=== PATIENT | female | born 1940 | race African-American/Black ===

== ENCOUNTER → 2022-03-19 14:46 | Outpatient (REF) | payer MEDICARE, SELFPAY ==
[2022-03-19 17:53] LABS: Basophils % 0.6 % (0.1-2.0); Eosinophils # 0.1 K/mm3 (0.0-0.4); Eosinophils % 1.8 % (0.1-12.0); Lymphocytes # 1.1 K/mm3 (0.7-4.5); Lymphocytes % 16.2 % (10-50); Mean Corpuscular HGB Conc 31.5 g/dL (31.8-35.4); Mean Corpuscular Hemoglobin 27.2 pg (27.0-31.2); Mean Corpuscular Volume 86.2 fl (81-99); Mean Platelet Volume 9.4 fl (7.4-10.4); Monocytes # 0.5 K/mm3 (0.1-1.0); Monocytes % 6.9 % (1.7-9.3); Neutrophils # 4.9 K/mm3 (1.8-7.8); Neutrophils % 74.6 % (37.0-80.0); Platelet Count 215 K/mm3 (142-424); Red Blood Count 3.32 M/mm3 (4.20-5.40); Red Cell Distribution Width 17.2 % (11.5-17.5); White Blood Count 6.6 K/mm3 (4.8-10.8)
[2022-03-19 18:04] LABS: Hematocrit 28.6 % (37.0-47.0)
[2022-03-19 18:11] LABS: Blood Urea Nitrogen 54 mg/dl (7-17); Calcium 8.3 mg/dl (8.4-10.2); Carbon Dioxide 18 mmol/L (22.0-30.0); Chloride 109 mmol/L (98-107); Estimated Glomerular Filt Rate 9 ml/min (>60); GFR (African American) 11 ML/MIN (>60); Glucose 164 mg/dl (74-100); Sodium 140 mmol/L (136-145)
== END ==
LOC: LAB.DROPOF 14:46
PROVIDERS: Visit Provider Nurse Practitioner Family
DX: R53.83 Other fatigue (principal)
CPT/HCPCS: 80048; 85025

== ENCOUNTER 2022-03-24 19:05 | Inpatient (IN) | payer MEDICARE, MEDICAID, SELFPAY ==
--- NOTE | 2022-03-24 19:00 | CT_ITS ---
PROCEDURE INFORMATION: Exam: CT Head Without Contrast Exam date and time: 03/24/2022 7:13 PM Age: 82 years old Clinical indication: Altered mental status/memory loss; Additional info: AMS TECHNIQUE: Imaging protocol: Computed tomography of the head without contrast. Radiation optimization: All CT scans at this facility use at least one of these dose optimization techniques: automated exposure control; mA and/or kV adjustment per patient size (includes targeted exams where dose is matched to clinical indication); or iterative reconstruction. COMPARISON: No relevant prior studies available. FINDINGS: Brain: Old left cerebellar infarct. Periventricular and subcortical small vessel ischemic changes. Mild atrophy associated. No acute hemorrhage, mass effect, midline shift, or extra-axial fluid collection. Cerebral ventricles: No ventriculomegaly. Paranasal sinuses: Visualized sinuses are unremarkable. No fluid levels. Mastoid air cells: Visualized mastoid air cells are well aerated. Bones/joints: Unremarkable. No acute fracture. Soft tissues: Unremarkable. IMPRESSION: 1. Old left cerebellar infarct. 2. No acute findings.
--- NOTE | 2022-03-24 19:02 | HMH.EDGENADL ---
Discharge Plan Disposition Patient Disposition: Admitted As Inpatient Condition: Fair Clinical Impressions Clinical Impression: Adult failure to thrive Discharge ED Provider: Bel Deutsch [facility] Adult HPI <Annie Tam DO - Last Filed: 03/24/22 20:11> General Chief complaint: Weakness Stated complaint: weakness Time Seen by Provider: 03/24/22 19:16 Mode of Arrival: EMS Source of Information: Relative and EMS Limitations: No Limitations History of Present Illness HPI narrative: 82-year-old female presenting to the emergency department with generalized weakness, altered mental status, failure to thrive. History obtained from EMS: Patient is a new resident to [facility]. She has been there 2 days. Family went to see her today and were concerned she looked dehydrated, not herself. She is usually able to carry on few word sentences. They requested she be evaluated in the emergency department History from family: Daughter and granddaughter state that they went to see her today and were very concerned about her. She is not eating and drinking. She previously was at a different detention, they are concerned that she had a very quick decline while she was there. They had her transferred to [place]. She had COVID prior to the last detention. No other recent illness. Given that she is becoming less responsive and less interested in eating and drinking, detention had discussed hospice care with patient's . was agreeable. However, the rest of the family does not think he knew what they were saying. They do not want her to be comfort care only. Patient will open her eyes, answers yes and no questions inappropriately. Medical record states she has hypertension, diabetes, dementia, chronic kidney disease Related Data Home Medications Medication Instructions Recorded Confirmed amantadine HCl 50 mg/5 mL oral 50 mg PO BID covid 03/24/22 03/25/22 solution amlodipine 10 mg tablet 10 mg PO DAILY Hypertension 03/24/22 03/25/22 carvedilol 25 mg tablet 25 mg PO DAILY hypertenison 03/24/22 03/25/22 clopidogrel 75 mg tablet 75 mg PO DAILY Blood thinner 03/24/22 03/25/22 hydralazine 50 mg tablet 50 mg PO DAILY Hypertension 03/24/22 03/25/22 insulin glargine 100 unit/mL (3 10 unit SQ HS Diabetes 10/26/22 10/27/22 mL) subcutaneous pen (Lantus Solostar U-100 Insulin) insulin lispro 100 unit/mL 1 unit SQ TID Diabetes 03/24/22 03/24/22 subcutaneous cartridge latanoprost 0.005 % eye drops 2 drp Eye-Both HS Glaucoma 03/24/22 03/25/22 melatonin 3 mg capsule 3 mg PO HS PRN Sleep 03/24/22 03/25/22 simvastatin 40 mg tablet 40 mg PO HS High cholesterol 03/24/22 03/25/22 Allergies Allergy/AdvReac Type Severity Reaction Status Date / Time cephalexin Allergy Verified 03/24/22 19:23 ibuprofen Allergy Verified 03/24/22 19:23 Penicillins Allergy Verified 03/24/22 19:23 [facility] <Annie Tam DO - Last Filed: 03/24/22 20:11> [facility] Medical History Anemia CKD (chronic kidney disease) Congestive heart failure COPD (chronic obstructive pulmonary disease) CVA (cerebral vascular accident) Dehydration Dementia Diabetes Hemiplegia affecting left dominant side Hyperlipidemia Hypernatremia Hypertension Pneumonia Tuberculosis Tuberculosis Surgical History Failed CABG (coronary artery bypass graft) History of nephrectomy Family History (Updated 03/25/22 @ 00:02 by Yeni White, RN) Other Anemia COPD (chronic obstructive pulmonary disease) Chronic kidney disease Coronary artery disease Diabetes Hypertension Social History (Updated 03/25/22 @ 00:05 by Yeni White, RN) Smoking Status: Former smoker years smoked: 20 alcohol intake: never current occupational status: retired Travel in the last 8 weeks: None housing: detention <Annie Tam DO - Last Fi
[2022-03-24 19:05] VITALS: BP 130/60; PULSE 71; RESP 16; TEMP 37.2; O2SAT 99; BMI 36.6
--- NOTE | 2022-03-24 19:34 | ECG_ITS ---
APPROVED REPORT Exam: Resting ECG HR:72 bpm ECG Measurements Heart Rate 72 AXES VT 152 P 50 QRSd 90 QRS -19 QT 375 T 117 QTc 399 Conclusion SINUS RHYTHM LEFT VENTRICULAR HYPERTROPHY AND ST-T CHANGE [VOLTAGE CRITERIA PLUS ST/T ABNORMALITY] ABNORMAL ECG UNCONFIRMED REPORT Electronically signed by : Royer Forman MD 03/25/2022 21:07:06
[2022-03-24 19:52] LABS: Influenza A, PCR Not Detected (NotDetected); Influenza B, PCR Not Detected (NotDetected); Microscopic, Urine URINE MICROSCOPIC (MICROSCOPIC)
[2022-03-24 19:57] LABS: VBG Base Excess -4.3 mmol/L (-2.4-2.3); VBG HCO3 21.3 mmol/L (23-30); VBG Oxygen Saturation 79.6 % (50-70); VBG PCO2 39.5 mmol/L (35-51); VBG PH 7.35 mmol/L (7.31-7.41); VBG PO2 46.2 mmol/L (28-40); VBG Total CO2 22.5 mmol/L (23-27)
[2022-03-24 19:59] LABS: Appearance,Urine CLEAR (Clear); Bilirubin,Urine Negative (Negative); Blood, Urine 2+ (Negative); Color,Urine YELLOW (Yellow); Glucose,Urine (UA) 1+ (Negative); Ketones,Urine Negative (Negative); Leukocyte Esterase,Urine Negative (Negative); Nitrate,Urine Negative (Negative); Protein,Urine 3+ (Negative); Specific Gravity, Urine >= 1.030 (1.005-1.030); Urobilinogen,Urine 0.2 EU/dl (0.2)
[2022-03-24 19:59] LABS: Basophils # 0.1 K/mm3 (0-0.2); Basophils % 0.6 % (0.1-2.0); Eosinophils # 0.2 K/mm3 (0.0-0.4); Eosinophils % 2.1 % (0.1-12.0); Hemoglobin 8.7 g/dL (12.2-16.2); Lymphocytes # 1.4 K/mm3 (0.7-4.5); Lymphocytes % 16.2 % (10-50); Mean Corpuscular HGB Conc 31.1 g/dL (31.8-35.4); Mean Corpuscular Hemoglobin 27.1 pg (27.0-31.2); Mean Platelet Volume 8.5 fl (7.4-10.4); Monocytes # 0.5 K/mm3 (0.1-1.0); Monocytes % 5.3 % (1.7-9.3); Neutrophils # 6.6 K/mm3 (1.8-7.8); Neutrophils % 75.9 % (37.0-80.0); Platelet Count 249 K/mm3 (142-424); Red Blood Count 3.22 M/mm3 (4.20-5.40); Red Cell Distribution Width 16.8 % (11.5-17.5); White Blood Count 8.7 K/mm3 (4.8-10.8)
[2022-03-24 20:01] LABS: Anion Gap 12.4 mEq/L (5-15); Bilirubin,Total 0.3 mg/dl (0.2-1.3); Blood Urea Nitrogen 65 mg/dl (7-17); Calcium 8.4 mg/dl (8.4-10.2); Carbon Dioxide 25 mmol/L (22.0-30.0); Chloride 117 mmol/L (98-107); Creatinine Clearance Estimated 13 mL/min (50-200); Estimated Glomerular Filt Rate 9 ml/min (>60); GFR (African American) 11 ML/MIN (>60); Glucose 148 mg/dl (74-100); Potassium 4.4 mmoL/L (3.5-5.1)
[2022-03-24 20:02] LABS: Alanine Aminotransferase 149 U/L (12-78); Albumin Level 2.9 g/dl (3.5-5.0); Albumin/Globulin Ratio 0.8 (1.1-1.8); Alkaline Phosphatase 108 U/L (38-126); Aspartate Amino Transferase 154 U/L (14-36); Globulin 3.5 g/dL (1.3-3.2); Lipase 47 U/L (23-300); Total Protein,Serum 6.4 g/dl (6.3-8.2)
[2022-03-24 20:03] LABS: Ammonia < 9 umol/L (9-30); Lactic Acid 1.1 mmol/L (0.7-2.1)
[2022-03-24 20:11] LABS: Sodium 150 mmol/L (136-145)
[2022-03-24 20:37] LABS: Bacteria,Urine 1+ /lpf
[2022-03-24 20:38] LABS: Amorphous Sediment,Urine Trace /lpf; Yeast,Urine 1+ /lpf
--- NOTE | 2022-03-24 20:45 | PC.NURSE ---
Bed assignment obtained, notified admissions
[2022-03-24 20:56] VITALS: BMI 34.9
[2022-03-24 20:58] LABS: Coronavirus 19, PCR Detected (NotDetected)
--- NOTE | 2022-03-24 22:10 | EXP.HP ---
History of Present Illness *Admission Date: 03/24/22 *Reason for visit:: Failure to Thrive *History of present illness: Ms. Chantal Izquierdo is a 82-year-old female who is a resident of a local long-term care facility. Per Family report the patient has a history of CHF, type unknown, history of recent COVID 19 infection, Dementia, Diabetes Mellitus and Hyperlipidemia. She presented to [facility] by EMS from the local [place] due to family concern for decline. The patient was seen on admission in the ER, the patient's daughter and grand-daughter were at bedside. They report that the patient has been at [facility] since 03/16. She was placed at the [facility] for long-term care due to the patient's being no longer able to care for her in the home. They report that the patient has not walked in the last six weeks following a hospitalization in the [facility]. They report that they went to see the patient today and she was much worse than prior visit so they requested that she be sent to the ER for evaluation. Also the patient was being followed by Hospice at the facility, they are currently not wanting Hospice and want further work-up and re-evaluation they report that the patient's was not aware of the decision he was making and reports he will be at this facility tomorrow morning to discuss further. In the ER, CBC was unremarkable. CMP showed a Creatinine of 4.70 with a GFR of 9. Sodium was elevated at 150. CT of the head showed an old left cerebellar infarct and no acute findings. The family denies knowing if the patient has CKD. They do report a history of a Nephrectomy at a young age for the patient but reports that they are unsure why the patient received the Nephrectomy. The patient will be admitted with initial impression: Failure to Thrive, HOLLIE on possible CKD. Urine studies and US of the kidneys will be ordered. The patient will be given fluids for Hypernatremia. Case Management will be consulted for possible placement issues and Speech will be consulted. The plan of care was discussed on admission with the patient's family at bedside. The family verbalized understanding and agreement with the plan of care. [facility] Medical History (Updated 03/24/22 @ 22:23 by Jorge Luis Villanueva DNP) CKD (chronic kidney disease) Congestive heart failure Dementia Hyperlipidemia Tuberculosis Tuberculosis Surgical History (Updated 03/24/22 @ 22:20 by Jorge Luis Villanueva DNP) Failed CABG (coronary artery bypass graft) History of nephrectomy Family History (Updated 03/24/22 @ 22:20 by Jorge Luis Villanueva DNP) Other Coronary artery disease Social History (Updated 03/24/22 @ 22:21 by Jorge Luis Villanueva DNP) Smoking Status: Former smoker years smoked: 20 alcohol intake: never current occupational status: retired Travel in the last 8 weeks: None housing: prison Review of Systems Review of Systems Review of systems:: unable to obtain Meds Home Medications and Allergies Home Medications Medication Instructions Recorded Confirmed Type amantadine HCl 50 mg/5 mL oral 50 mg PO BID covid 03/24/22 03/24/22 History solution amlodipine 10 mg tablet 10 mg PO DAILY Hypertension 03/24/22 03/24/22 History carvedilol 25 mg tablet 25 mg PO DAILY hypertenison 03/24/22 03/24/22 History clopidogrel 75 mg tablet 75 mg PO DAILY Blood thinner 03/24/22 03/24/22 History hydralazine 50 mg tablet 50 mg PO DAILY Hypertension 03/24/22 03/24/22 History insulin glargine 100 unit/mL (3 10 unit SQ HS Diabetes 03/24/22 03/24/22 History mL) subcutaneous pen (Lantus Solostar U-100 Insulin) insulin lispro 100 unit/mL 1 unit SQ TID Diabetes 03/24/22 03/24/22 History subcutaneous cartridge latanoprost 0.005 % eye drops 2 drp Eye-Both HS Glaucoma 03/24/22 03/24/22 History melatonin 3 mg capsule 3 mg PO HS PRN Sleep 03/24/22 03/24/22 History simvastatin 40 mg tablet 40 mg PO HS High cholesterol
[2022-03-24 22:16] LABS: NT Pro Brain Natriuretic Pep. 1840 pg/mL (0-450)
[2022-03-24 22:18] LABS: Creatinine,Urine Random 130 mg/dL (Not Estab.)
[2022-03-24 22:38] VITALS: BP 145/74; PULSE 70; RESP 16; TEMP 37.1; O2SAT 99
--- NOTE | 2022-03-24 22:38 | XR_ITS ---
PROCEDURE INFORMATION: Exam: XR Abdomen Exam date and time: 03/25/2022 12:36 AM Age: 82 years old Clinical indication: Other: Not eating; Additional info: Not eating, non-mobile TECHNIQUE: Imaging protocol: Radiologic exam of the abdomen. Views: Frontal supine view of the abdomen. 1 View. COMPARISON: No relevant prior studies available. FINDINGS: Gastrointestinal tract: Several mildly/borderline distended loops of small bowel, nonspecific, partial/early small bowel obstruction is possible. Vasculature: Aorta bi-iliac stent. Bones/joints: Median sternotomy. IMPRESSION: Several mildly/borderline distended loops of small bowel, nonspecific, partial/early small bowel obstruction is possible.
--- NOTE | 2022-03-24 22:50 | PC.NURSE ---
PT ARRIVED BY STRETCHER AT THIS TIME
[2022-03-24 23:26] VITALS: BP 113/68; PULSE 121; RESP 16; TEMP 36.9; O2SAT 97
[2022-03-25 04:00] VITALS: BP 142/68; PULSE 75; RESP 16; TEMP 37.1; O2SAT 98
[2022-03-25 04:05] VITALS: BMI 34.9
--- NOTE | 2022-03-25 05:57 | US_ITS ---
FINAL REPORT TECHNIQUE: Ultrasound images of the kidneys were obtained. CLINICAL HISTORY: elevated creatinine FINDINGS: US RETROPERITONEAL The right kidney measures 8.4 cm in length. There is increased echogenicity. There is no hydronephrosis. The left kidney measures 8.8 cm in length. There is increased echogenicity. There is no hydronephrosis. There is a 2.8 cm left renal cyst. Spleen is unremarkable. IMPRESSION: Increased echogenicity of both kidneys worrisome for medical renal disease. Left renal cyst, 2.8 cm. Reviewed, Interpreted and Dictated by Dejuan Rosales III, MD Transcribed by Anastasia Mullins Authenticated and [facility]
--- NOTE | 2022-03-25 06:16 | PC.NURSE ---
Pt is alert to self. Can state her name, age and Bday. Has been resistive to turning and repositioning. VSS. Lungs are diminished t/o. Pt remains on RA. She has been afebrile. F/C draining to bedside with cloudy, yellow urine. 300 ml output. No BM this shift. Pt noted to have 2+ pitting edema to BLE. Pt tends to draw legs up and to the left. Medications administered per mar. Call light at bedside. Safety measures in place.
[2022-03-25 07:22] LABS: Basophils # 0.1 K/mm3 (0-0.2); Basophils % 0.5 % (0.1-2.0); Eosinophils # 0.2 K/mm3 (0.0-0.4); Eosinophils % 1.8 % (0.1-12.0); Hematocrit 27.6 % (37.0-47.0); Hemoglobin 8.4 g/dL (12.2-16.2); Lymphocytes # 1.2 K/mm3 (0.7-4.5); Lymphocytes % 13.7 % (10-50); Mean Corpuscular HGB Conc 30.5 g/dL (31.8-35.4); Mean Corpuscular Hemoglobin 26.8 pg (27.0-31.2); Mean Corpuscular Volume 87.9 fl (81-99); Mean Platelet Volume 8.6 fl (7.4-10.4); Monocytes # 0.4 K/mm3 (0.1-1.0); Monocytes % 4.8 % (1.7-9.3); Neutrophils % 79.2 % (37.0-80.0); Platelet Count 233 K/mm3 (142-424); Red Blood Count 3.14 M/mm3 (4.20-5.40); Red Cell Distribution Width 16.7 % (11.5-17.5); White Blood Count 8.8 K/mm3 (4.8-10.8)
[2022-03-25 07:26] LABS: Chloride 121 mmol/L (98-107)
[2022-03-25 07:27] LABS: Potassium 4.4 mmoL/L (3.5-5.1)
[2022-03-25 07:29] LABS: Alanine Aminotransferase 118 U/L (12-78); Albumin Level 2.9 g/dl (3.5-5.0); Albumin/Globulin Ratio 0.9 (1.1-1.8); Alkaline Phosphatase 98 U/L (38-126); Aspartate Amino Transferase 103 U/L (14-36); Bilirubin,Total 0.3 mg/dl (0.2-1.3); Blood Urea Nitrogen 62 mg/dl (7-17); Carbon Dioxide 22 mmol/L (22.0-30.0); Creatinine Clearance Estimated 14 mL/min (50-200); Estimated Glomerular Filt Rate 10 ml/min (>60); GFR (African American) 12 ML/MIN (>60); Globulin 3.3 g/dL (1.3-3.2); Total Protein,Serum 6.2 g/dl (6.3-8.2)
[2022-03-25 07:30] LABS: Calcium 8.1 mg/dl (8.4-10.2); Glucose 180 mg/dl (74-100)
[2022-03-25 07:36] LABS: Anion Gap 14.4 mEq/L (5-15); Sodium 153 mmol/L (136-145)
--- NOTE | 2022-03-25 07:44 | PC.NURSE ---
Lab notified this RN of critical Sodium and Creatinine, name and verified. Critical lab values reported to hospitalist Param Knutson.
--- NOTE | 2022-03-25 07:57 | DIET.NUTRFU ---
Addendum entered by Amna Turcios RD, LD 03/25/22 11:30: REEL OPERATOR completed bedside swallow eval. she tolerated puree with thin liquids. She demonstrated a delayed swallow requiring verbal cues, 1:1 supervision and no straws recommended at this time. Currently NPO for renal ultrasound then okay to start oral diet. RD will continue to evaluate meal intake for need of supplements but based on renal fxn and depending family goals supplements may not be appropriate based on renal fxn. Cholo continue to follow-up with plan of care. Addendum entered by Amna Turcios RD, LD 03/25/22 08:02: She also has +2 edema noted and has COVID Original Note: RD consulted for low bryon score, she is currently NPO waiting for REEL OPERATOR to evaluate. She was admitted from [place], there her diet was diabetic puree with thin liquids. Provider note indicated poor po intake, dx of failure to thrive and moderate PCM. Will continue to follow REEL OPERATOR recommendations and add supplements when appropriate. Renal labs elevated BUN 62 and Cr 4.3 along with AST 103/ALT 118- these show some improvement over night. High protein would not be beneficial at this time.Dextrose was provided 03/24, now on NaCl. Na is now up to 153H was 150. Will continue to monitor labs.
[2022-03-25 08:00] VITALS: BP 151/65; PULSE 74; RESP 16; TEMP 36.9; O2SAT 95
[2022-03-25 08:03] LABS: NT Pro Brain Natriuretic Pep. 1560 pg/mL (0-450)
[2022-03-25 09:52] VITALS: BMI 34.9
--- NOTE | 2022-03-25 10:56 | PC.NURSE ---
medication admin was delayed because pt was ordered bed side swallow eval via speech therapy. speech therapy has cleared pt to have thin liquids so meds will be given at this time.
--- NOTE | 2022-03-25 11:21 | HMH.SLDYSPHA ---
Speech & Language Evaluation Speech/Language Dysphagia Evaluation Start: 03/25/22 10:55 Freq: ONCE Status: Active Protocol: Document 03/25/22 10:57 GUZMANMARIA DEL ROSARIO (Rec: 03/25/22 11:21 CHELLE [id number]) Dysphagia Assess/Goals/Plan Assessment Date of Evaluation: 03/25/22 Evaluation Type Initial Certification Assessment/Problems Pt seen for clinical bedside swallow evaluation per MD order. Does Patient Qualify for Service No Qualify/Failure Comment Pt demonstrated tolerance of current diet & no further speech therapy services are warranted at this time. Recommendations PHYSICIAN CERTIFICATION: The specified therapy services are required, authorized, and reviewed every 30 days. Diet Recommendations Pureed Liquid Type Recommendations Normal/Thin SL Swallow Guidelines Assist w/all meals,Standard Aspiration Prec. Dysphagia Swallow Precautions/Strategies Sitting Upright (90 deg),No Straw,Small Bites and Sips, Alternate Liquids/Solids Plan Pt/Guardian verbally ack understanding Yes of dx/prognosis/goals G -code Required No Education Instructions provided STONE RUBBER provided assessment results and diet recommendations to patient, nursing, and care management who expressed understanding. Pt/Caregiver able to recall information Able to recall/restate Reinforcement needed No Speech & Language HPI History Present Illness Description of Patient Problem 82-year-old female admitted from ER with generalized weakness, altered mental status, failure to thrive. History obtained from EMS: Patient is a new resident to [facility]. Family went to see her noted concerns that she looked dehydrated and not herself. Pt is reported to typically b e able to carry on few word sentences. At time of evaluation, pt noted to answer yes/no questions inconsistently and required repetitions to respond. PMH includes: recent COVID dx, hypertension, diabetes,
[2022-03-25 12:00] VITALS: BP 173/88; PULSE 73; RESP 16; TEMP 36.2; O2SAT 94
--- NOTE | 2022-03-25 13:29 | EXP.DC.SUM ---
General Admission date:: 03/24/22 Discharge date: 03/25/22 HPI HPI HPI: Ms. Chantal Izquierdo is a 82-year-old female who is a resident of a local long-term care facility. 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 She presented to [facility] by EMS from the local [place] due to family concern for decline. The patient was seen on admission in the ER, the patient's daughter (Nomi Jasso) and grand-daughter were at bedside. They report that the patient has been at [facility] since 03/16. She was placed at the [place] for long-term care due to the patient's being no longer able to care for her in the home. They report that the patient has not walked in the last six weeks following a hospitalization in the [facility]. They report that they went to see the patient today and she was much worse than prior visit so they requested that she be sent to the ER for evaluation. Also the patient was being followed by Hospice at the facility for CKD5 and decision for no dialysis, they are currently rescinding Hospice and want further work-up and re-evaluation for her ESRD/CKD5. They report that the patient's of 50 years was not aware of the decision he was making. Family is concerned with 's advanced age and mild dementia concerning decision making. They are requesting dialysis for their mother. In the ER, CBC was unremarkable. CMP showed a Creatinine of 4.70 with a GFR of 9. Sodium was elevated at 150. CT of the head showed an old left cerebellar infarct and no acute findings. The patient will be admitted with initial impression: Failure to Thrive, HOLLIE on possible CKD. Urine studies and US of the kidneys will be ordered. The patient will be given fluids for Hypernatremia. Case Management will be consulted for possible placement issues and Speech will be consulted. The plan of care was discussed on admission with the patient's family at bedside. The family verbalized understanding and agreement with the plan of care. (Jorge Luis Villanueva, IVETT) Hospital Course Hospital Course Hospital Course: The patient was admitted to the medical floor with gentle fluid resuscitation. Her laboratory studies were trended and identified hypernatremia with acute kidney injury on chronic kidney disease stage V. A goals of care discussion was had with the at bedside. The patient's daughter Sindy Jasso, granddaughter and other daughter were present for goals of care conversation. I was accompanied by case management and sr. social media & mobile manager. The patient is not decisional. Her at bedside reports that he did not understand his hospice decision. He would like for his to proceed with dialysis. Family members present were agreeable as well. We reached out to nephrology and tertiary care center to transition the patient's care as nephrology and dialysis are not available at [facility]. The family was amendable to transition the patient's care. Case management assisted with transition of care to [facility] in [facility]. Exam Data for Last 24 hours Vital signs and Labs for Last 24 Hours: Temp Pulse Resp BP Pulse Ox 97.1 F L 73 16 173/88 H 94 L 03/25/22 12:00 03/25/22 12:00 03/25/22 12:00 03/25/22 12:00 03/25/22 12:00 Laboratory Results - last 24 hr 03/24/22 19:00: VBG pH 7.35, VBG pCO2 39.5, VBG pO2 46.2 H, VBG HCO3 21.3 L, VBG Total CO2 22.5 L, VBG O2 Saturation 79.6 H, VBG Base Excess -4.3 L 03/24/22 19:40: Urine Color Yellow, Urine Appearance Clear, Urine pH 6.0, Ur Specific [place] >= 1.030, Urine Protein 3+, Urine Glucose (UA) 1+, Urine Ketones Negative, Urine Blood 2+, Urine Nitrate Negative, Urine Bilirubin Negative, Urine Urobilinogen 0.2, Ur Leukocyte Esterase Negative, Urine RBC 3-5, Urine WBC 5-10, Ur [place]
--- NOTE | 2022-03-25 14:25 | CARE MANAGER ---
Patient admitted from [facility] over night. I called and spoke with Juanita @ [facility] to notify that patient will discharged to [facility] today with plans for dialysis. Patient will have a dialysis chair and access set up prior to discharging back to [facility]. I spoke with patient and family at bedside, who are very much agreeable to this plan. Patient is planned for transfer to [place] today.
[2022-03-26 09:42] LABS: Sodium, Urine 34 mmol/L (Not Estab.)
== END 2022-03-25 14:45 | disposition short-term general hospital (02) | DRG 683 ==
LOC: ER 20:12 → 2ND 21:39
PROVIDERS: Emergency Medicine; Nurse Practitioner Family; Admitting Provider Family Medicine; Emergency Provider Emergency Medicine; Visit Provider Family Medicine
DX: N17.9 Acute kidney failure, unspecified (principal); E44.0 Moderate protein-calorie malnutrition; I13.2 Hypertensive heart and chronic kidney disease with heart failure and with stage 5 chronic kidney disease, or end stage renal disease; I69.354 Hemiplegia and hemiparesis following cerebral infarction affecting left non-dominant side; E87.0 Hyperosmolality and hypernatremia; I50.9 Heart failure, unspecified; I25.10 Atherosclerotic heart disease of native coronary artery without angina pectoris; N18.5 Chronic kidney disease, stage 5; Z86.16 Personal history of COVID-19; R62.7 Adult failure to thrive; Z68.34 Body mass index [BMI] 34.0-34.9, adult; E11.22 Type 2 diabetes mellitus with diabetic chronic kidney disease; Z79.4 Long term (current) use of insulin; F03.90 Unspecified dementia, unspecified severity, without behavioral disturbance, psychotic disturbance, mood disturbance, and anxiety; E78.5 Hyperlipidemia, unspecified; Z95.1 Presence of aortocoronary bypass graft; Z87.891 Personal history of nicotine dependence
CPT/HCPCS: 36415; 51702; 70450; 74018; 76770; 80053; 81001; 82140; 82570; 82803; 83605; 83690; 83880; 84300; 85025; 92610; 93005; 99285; C9803; U0003; U0005